=== PATIENT | male | born 1945 | race Caucasian/White ===

== ENCOUNTER 2020-12-07 11:45 | Emergency (ER) | payer OTHER ==
[2020-12-07 12:37] LABS: BASOPHIL 0.4 % (0-2); EOSINOPHIL 0.7 % (0-7); HCT 46.3 % (42.0-52.0); HGB 15.8 g/dl (13.2-18.0); MCH 32.6 pg (25.0-31.0); MCHC 34.1 g/dL (32.0-36.0); MCV 95.7 fL (78.0-100.0); MONOCYTE 10.1 % (0-12); MPV 9.2 fL (6.0-9.5); NEUTROPHIL 72.4 % (41-80); NRBC 0; PLT 161 K/uL (150-400); RBC 4.84 M/uL (4.70-6.00); RDW 11.9 % (11.5-14.0); WBC 8.2 K/uL (4.0-10.5)
[2020-12-07 13:00] LABS: ALBUMIN 3.7 g/dL (3.4-5.0); BILIRUBIN - TOTAL 0.4 mg/dL (0.2-1.0); BUN/CREAT RATIO (CALC) 22.7 RATIO; CREATININE 0.75 mg/dL (0.67-1.17); GLOBULIN (CALCULATION) 3.6 g/dL; POTASSIUM 4.8 mmol/L (3.5-5.1); TOTAL PROTEIN 7.3 g/dL (6.4-8.2)
[2020-12-07 14:31] LABS: BILIRUBIN NEGATIVE (NEGATIVE); BLOOD NEGATIVE Ery/uL (NEGATIVE); CLARITY CLEAR (CLEAR); COLOR YELLOW (YELLOW); GLUCOSE (U) NORMAL (NORMAL); LEUKOCYTES NEGATIVE Leu/uL (NEGATIVE); NITRITE NEGATIVE (NEGATIVE); PROTEIN NEGATIVE (NEGATIVE); SPECIFIC GRAVITY 1.015 (1.001-1.030); UROBILINOGEN 0.2 mg/dL (0.2-1.0)
== END 2020-12-07 15:02 | disposition home or self-care (01) ==
LOC: FER 11:45
PROVIDERS: Emergency Medicine
DX: R55 Syncope and collapse (principal); I10 Essential (primary) hypertension; Z87.891 Personal history of nicotine dependence; Z79.899 Other long term (current) drug therapy; Z88.2 Allergy status to sulfonamides
CPT/HCPCS: 36415; 70450; 80053; 81003; 84484; 85025; 93005